=== PATIENT | female | born 1965 | race Caucasian/White ===

== ENCOUNTER 2017-02-16 15:50 | Inpatient (IN) | payer SELFPAY ==
[~2017-02-16] VITALS: Ht 152.4 cm; Wt 107.1 kg
[~2017-02-16 15:50] MED LIST: ALPR2TAB2 PO; CYCL-331 PO; DULO60CA6 PO; ESTR1PAT42 TD; GABA-586 PO; HYDR-971 PO; LISI-334 PO; MELO15TA6 PO; METF10002 PO; SENN1TAB71 PO
[2017-02-16] MEDS ORDERED: ENOXAPARIN 30 MG/0.3 ML DISP.SYRIN. SQ SCH (16:30)
[2017-02-16 16:54] VITALS: BP 119/83
[2017-02-16] MEDS ORDERED: ONDANSETRON ODT 4 MG TAB.RAPDIS PO PRN (17:10)
[2017-02-16 17:24] LABS: BASO # 0.1 x10^3/uL (0.0-0.2); BASO % 1 % (0-3); EOS # 0.5 x10^3/uL (0.0-0.7); EOS % 4 % (0-3); HEMATOCRIT 44.4 % (36.0-47.0); HEMOGLOBIN 15.4 g/dL (12.0-15.5); LYMPH # 3.8 x10^3/uL (1.0-4.8); LYMPH % 33 % (24-48); MEAN CORPUSCULAR HEMOGLOBIN 30 pg (25-35); MEAN CORPUSCULAR HGB CONC 35 g/dL (31-37); MEAN CORPUSCULAR VOLUME 86 fL (79-100); MONO # 1.6 x10^3/uL (0.0-1.1); MONO % 14 % (0-9); NEUT # 5.7 x10^3uL (1.8-7.7); NEUT % 49 % (31-73); PLATELET COUNT 265 x10^3/uL (140-400); RED BLOOD COUNT 5.16 x10^6/uL (3.50-5.40); RED CELL DISTRIBUTION WIDTH 14.4 % (11.5-14.5); WHITE BLOOD COUNT 11.7 x10^3/uL (4.0-11.0)
--- NOTE | 2017-02-16 17:30 | EKG ---
[address] [address] Test Date: 2017-02-16 Test Time: 17:23:59 Pat Name: JIN HAND Department: Room: 119 A Gender: F Manager [employer]: ARELY : 1965 Requested By: JAZMIN YEBOAH Order Number: [id number] Reading MD: Measurements Intervals [place] Rate: 110 P: 36 GA: 136 QRS: 17 QRSD: 94 T: 21 QT: 316 QTc: 433 Interpretive Statements SINUS TACHYCARDIA R-S TRANSITION ZONE IN V LEADS DISPLACED TO THE LEFT QRS(T) CONTOUR ABNORMALITY CONSIDER ANTEROSEPTAL MYOCARDIAL DAMAGE POSSIBLY ABNORMAL ECG RI6.01 No previous ECG available for comparison
[2017-02-16 17:44] LABS: ALBUMIN 3.7 g/dL (3.4-5.0); ALBUMIN/GLOBULIN RATIO 0.8 (1.0-1.7); CALCIUM 10.2 mg/dL (8.5-10.1); CREATININE 0.9 mg/dL (0.6-1.0); GFR 65.5; POTASSIUM 3.6 mmol/L (3.5-5.1); TOTAL BILIRUBIN 0.6 mg/dL (0.2-1.0); TOTAL PROTEIN 8.2 g/dL (6.4-8.2)
[2017-02-16] MEDS ORDERED: GLIP5TAB10 PO (17:53)
[2017-02-16] MEDS ORDERED: AMIT25TA PO (17:53)
[2017-02-16] MEDS ORDERED: LISI1TAB7 PO (17:53)
[2017-02-16] MEDS ORDERED: ALPR0.5T6 PO (17:53)
[2017-02-16] MEDS ORDERED: PARO30TA3 PO (17:53)
[2017-02-16] MEDS ORDERED: OMEP40CA5 PO (17:54)
[2017-02-16] MEDS: IV NORMAL SALINE 1,000ML 1,000 ML IV SCH (18:29)
[2017-02-16] MEDS: HYDROcodone/APAP 5/325MG 1 TAB TABLET PO PRN (18:29)
[2017-02-16 18:42] LABS: SEDIMENTATION RATE 34 (0-25)
[2017-02-16] MEDS ORDERED: DEXTROSE 50% 25 GM / 50ML DISP.SYRIN. IV PRN (18:45)
[2017-02-16] MEDS ORDERED: ENOXAPARIN 40 MG/0.4 ML DISP.SYRIN. SQ SCH (19:15)
[2017-02-16 19:36] LABS: BILIRUBIN,URINE NEG (NEG); CLARITY,URINE HAZY; COLOR,URINE YELLOW; GLUCOSE,URINE 100 mg/dL (NEG); NITRITE,URINE NEG (NEG); UROBILINOGEN,URINE 0.2 mg/dL (0.2 mg/dL)
[2017-02-16 19:37] VITALS: BP 118/84
[2017-02-16 19:37] LABS: BACTERIA,URINE MOD /HPF (0-FEW); SQUAMOUS EPITHELIAL CELL,UR MANY /LPF
[2017-02-16] MEDS ORDERED: PNEUMOC CONJ VACC 23-VALENT 0.5 ML VIAL. VAX IM ONE (21:00)
[2017-02-16] MEDS ORDERED: FLU VACC QS2017-18 (36MOS+)/PF 0.5 ML SYRINGE. VAX IM ONE (21:00)
[2017-02-16] MEDS: GABAPENTIN 300 MG CAPSULE. PO SCH (21:15)
[2017-02-16] MEDS: CYCLOBENZAPRINE 10 MG TABLET. PO SCH (21:15)
[2017-02-16] MEDS: AMITRIPTYLINE HCL 50 MG TABLET PO SCH (21:15)
[2017-02-16] MEDS: ALPRAZolam 0.5 MG TABLET PO SCH (21:15)
[2017-02-16] MEDS: INSULIN ASPART 300 UNITS/3 ML INSULN.PEN SQ SCH (21:16)
[2017-02-16 23:48] VITALS: BP 111/66
[2017-02-17] MEDS: IV NORMAL SALINE 1,000ML 1,000 ML IV SCH ×3 (01:02→20:07)
[2017-02-17 05:03] VITALS: BP 104/74
[2017-02-17] MEDS: ENOXAPARIN 40 MG/0.4 ML DISP.SYRIN. SQ SCH ×2 (05:16→20:08)
[2017-02-17 06:30] LABS: BASO # 0.1 x10^3/uL (0.0-0.2); BASO % 1 % (0-3); EOS # 0.5 x10^3/uL (0.0-0.7); EOS % 7 % (0-3); HEMATOCRIT 39.8 % (36.0-47.0); HEMOGLOBIN 13.8 g/dL (12.0-15.5); LYMPH # 3.2 x10^3/uL (1.0-4.8); LYMPH % 44 % (24-48); MEAN CORPUSCULAR HEMOGLOBIN 30 pg (25-35); MEAN CORPUSCULAR HGB CONC 35 g/dL (31-37); MEAN CORPUSCULAR VOLUME 86 fL (79-100); MONO % 15 % (0-9); NEUT # 2.3 x10^3uL (1.8-7.7); NEUT % 33 % (31-73); PLATELET COUNT 194 x10^3/uL (140-400); RED BLOOD COUNT 4.62 x10^6/uL (3.50-5.40); RED CELL DISTRIBUTION WIDTH 14.1 % (11.5-14.5); WHITE BLOOD COUNT 7.1 x10^3/uL (4.0-11.0)
[2017-02-17 07:16] LABS: HEMOGLOBIN A1C 9.6 % (4.8-5.6)
--- NOTE | 2017-02-17 07:46 | RAD ---
Chest, 2 views, 02/16/2017: History: Shortness of breath The heart size and pulmonary vascularity are normal. No pulmonary infiltrates are seen. There is no evidence of pleural fluid. Moderate spurring is present in the spine. IMPRESSION: No acute cardiopulmonary abnormality is detected.
[2017-02-17] MEDS ORDERED: metFORMIN 500 MG TABLET PO SCH (08:00)
[2017-02-17] MEDS: ALPRAZolam 0.5 MG TABLET PO SCH ×2 (08:22→20:08)
[2017-02-17] MEDS: CYCLOBENZAPRINE 10 MG TABLET. PO SCH ×2 (08:22→20:08)
[2017-02-17] MEDS: PANTOPRAZOLE 40 MG TABLET. PO SCH (08:22)
[2017-02-17] MEDS: PARoxetine 10 MG TABLET PO SCH (08:23)
[2017-02-17] MEDS: GABAPENTIN 300 MG CAPSULE. PO SCH ×3 (08:23→20:08)
[2017-02-17] MEDS: glipiZIDE 5 MG TABLET PO SCH (08:24)
[2017-02-17] MEDS: PARoxetine 20 MG TABLET PO SCH (08:34)
[2017-02-17] MEDS: LISINOPRIL 20 MG TABLET PO SCH (08:39)
[2017-02-17] MEDS: hydroCHLOROthiazide 25 MG TABLET PO SCH (08:39)
[2017-02-17] MEDS: INSULIN ASPART 300 UNITS/3 ML INSULN.PEN SQ SCH ×4 (08:42→20:28)
[2017-02-17] MEDS ORDERED: IOHEXOL 300 MG/ML 75 ML VIAL. IV ONE (10:00)
[2017-02-17] MEDS: INSULIN DETEMIR 300 UNITS/3 ML INSULN.PEN. SQ SCH ×2 (10:33→20:27)
[2017-02-17] MEDS ORDERED: CONTRAST GIVEN MC PRN (10:45)
[2017-02-17 11:09] VITALS: BP 112/79
--- NOTE | 2017-02-17 12:07 | RAD ---
CT angiography chest 02/17/2017 Indication: Elevated d-dimer. Shortness of breath. Comparison: None available Technique: Multiple axial CT images of the chest were obtained after the administration of 75 mL Omnipaque 300. Coronal and sagittal reformats are provided. Density projection images of the pulmonary vasculature are provided. Findings: Thyroid gland is normal in appearance. There are no pathologically enlarged lymph nodes in the axilla, mediastinum or hilar regions. Heart size is within normal limits. Thoracic area is normal in course and caliber. There is inadequate opacification of the pulmonary arterial system to assess for pulmonary embolism. There is a 13 x 8 nodular opacity abutting the oblique fissure in the posterior right upper lobe. There is an additional nodular opacity in the left upper lobe measuring 10 x 7 mm. There are no pleural effusions. No pulmonary vascular congestion or pneumothorax. No suspicious osseous lesions are identified. There is diffuse hypoattenuation the hepatic parenchyma suggestive of hepatic steatosis. Otherwise, visualized portions of the upper abdomen are within normal limits. Impression: 1. 13 x 8 nodular opacity abutting the oblique fissure and posterior right upper lobe. Additional nodular opacity in the left upper lobe measuring 10 x 7 mm. Consideration may be given for an infectious/inflammatory process, however recommend correlation with any underlying history of malignancy. Further evaluation with either tissue sampling or PET CT may be of benefit as lung malignancy is a consideration. 2. Inadequate opacification the pulmonary arterial system to assess for pulmonary embolism. If there is persistent clinical concern, further evaluation with a ventilation perfusion nuclear medicine scan may be of benefit. 3. Diffuse hypoattenuation the hepatic parenchyma suggestive of hepatic steatosis. Critical results were discussed with JAMES Rodriguez at 12:00 PM on 02/17/2017. PQRS Compliance Statement: One or more of the following individualized dose reduction techniques were utilized for this examination: 1. Automated exposure control 2. Adjustment of the mA and/or kV according to patient size 3. Use of iterative reconstruction technique
[2017-02-17] MEDS: HYDROcodone/APAP 5/325MG 1 TAB TABLET PO PRN ×2 (12:14→17:15)
[2017-02-17] MEDS: NITROFURANTOIN MONOHYD/M-CRYST 100 MG CAPSULE. PO SCH ×2 (12:22→20:08)
[2017-02-17 14:34] VITALS: BP 117/73
--- NOTE | 2017-02-17 15:48 | RAD ---
Ventilation/perfusion lung scan, 02/17/2017: History: Shortness of breath, elevated d-dimer The ventilation study was performed utilizing 9.2 mCi of xenon-133. Activity in the lungs is mildly heterogeneous. There is good washout of the xenon from the lungs. Perfusion imaging was performed utilizing 5.5 mCi of technetium 99m MAA. A similar pattern of activity is present in the lungs. No significant unmatched or segmental perfusion defects are seen. IMPRESSION: There are no VQ findings to suggest pulmonary emboli.
[2017-02-17 19:10] VITALS: BP 105/62
[2017-02-17] MEDS: AMITRIPTYLINE HCL 50 MG TABLET PO SCH (20:08)
[2017-02-17] MEDS ORDERED: PNEUMOC CONJ VACC 23-VALENT 0.5 ML VIAL. VAX IM ONE (22:00)
[2017-02-17] MEDS ORDERED: FLU VACC QS2017-18 (36MOS+)/PF 0.5 ML SYRINGE. VAX IM ONE (22:00)
[2017-02-17 23:00] VITALS: BP 102/67
[2017-02-18] MEDS: IV NORMAL SALINE 1,000ML 1,000 ML IV SCH ×2 (00:45→05:38)
--- NOTE | 2017-02-18 03:38 | PN ---
DATE: 02/17/2017 SUBJECTIVE: A 51-year-old female in with elevated blood sugars, possible infectious or inflammatory process in the lungs as well as hepatic steatosis. V/Q scan was performed apparently because the CTA did not get enough perfusion and it was negative for signs of PE. Otherwise, she is feeling better, sugars are coming down. PHYSICAL EXAMINATION: VITAL SIGNS: Blood pressure 120/70, pulse 90, respiratory rate 20, afebrile. LUNGS: Diminished, but clear. CARDIOVASCULAR: Regular sinus rhythm. ABDOMEN: Protuberant, soft, nontender. EXTREMITIES: No clubbing, cyanosis, or edema. The patient otherwise seems to be resting fairly comfortably and getting her sugars down and we will continue to monitor. IMPRESSION: Pneumonia of unspecified etiology. Type 2 diabetes, poorly controlled with an A1c of 9, almost 10. Elevated liver enzymes, hepatic steatosis. Continue to increase her Levemir, give her diabetic education as well as continue on IV antibiotic therapy. Monitor electrolytes. JAZMIN YEBOAH MD DR: JONATHON/delvis JOB#: [id number] / [id number]
[2017-02-18] MEDS: ENOXAPARIN 40 MG/0.4 ML DISP.SYRIN. SQ SCH (05:38)
[2017-02-18 05:40] VITALS: BP 104/79
[2017-02-18 06:00] LABS: BASO # 0.1 x10^3/uL (0.0-0.2); BASO % 1 % (0-3); EOS # 0.4 x10^3/uL (0.0-0.7); EOS % 7 % (0-3); HEMATOCRIT 39.4 % (36.0-47.0); HEMOGLOBIN 13.1 g/dL (12.0-15.5); LYMPH # 2.8 x10^3/uL (1.0-4.8); LYMPH % 45 % (24-48); MEAN CORPUSCULAR HEMOGLOBIN 30 pg (25-35); MEAN CORPUSCULAR HGB CONC 33 g/dL (31-37); MEAN CORPUSCULAR VOLUME 90 fL (79-100); MONO # 0.8 x10^3/uL (0.0-1.1); MONO % 13 % (0-9); NEUT # 2.1 x10^3uL (1.8-7.7); NEUT % 34 % (31-73); PLATELET COUNT 196 x10^3/uL (140-400); RED BLOOD COUNT 4.39 x10^6/uL (3.50-5.40); WHITE BLOOD COUNT 6.3 x10^3/uL (4.0-11.0)
[2017-02-18 06:12] LABS: CALCIUM 8.7 mg/dL (8.5-10.1); CREATININE 0.6 mg/dL (0.6-1.0); GFR 104.6; POTASSIUM 3.5 mmol/L (3.5-5.1)
[2017-02-18] MEDS: PANTOPRAZOLE 40 MG TABLET. PO SCH (08:00)
[2017-02-18] MEDS: INSULIN ASPART 300 UNITS/3 ML INSULN.PEN SQ SCH ×2 (08:05→12:00)
[2017-02-18] MEDS ORDERED: FLU VACC QS2017-18 (36MOS+)/PF 0.5 ML SYRINGE. VAX IM ONE (09:00)
[2017-02-18] MEDS ORDERED: LACTOBACILLUS ACIDOPH & BULGAR 1 TABLET. PO SCH (09:00)
[2017-02-18] MEDS: GABAPENTIN 300 MG CAPSULE. PO SCH (09:34)
[2017-02-18] MEDS: ALPRAZolam 0.5 MG TABLET PO SCH (09:35)
[2017-02-18] MEDS: NITROFURANTOIN MONOHYD/M-CRYST 100 MG CAPSULE. PO SCH (09:36)
[2017-02-18] MEDS: CYCLOBENZAPRINE 10 MG TABLET. PO SCH (09:36)
[2017-02-18] MEDS: PARoxetine 20 MG TABLET PO SCH (09:36)
[2017-02-18] MEDS: PARoxetine 10 MG TABLET PO SCH (09:38)
[2017-02-18] MEDS: LISINOPRIL 20 MG TABLET PO SCH (09:39)
[2017-02-18] MEDS: hydroCHLOROthiazide 25 MG TABLET PO SCH (09:42)
[2017-02-18] MEDS: glipiZIDE 5 MG TABLET PO SCH (09:43)
[2017-02-18] MEDS: INSULIN DETEMIR 300 UNITS/3 ML INSULN.PEN. SQ SCH (09:44)
[2017-02-18] MEDS ORDERED: INSU100I17 SQ (11:25)
[2017-02-18] MEDS ORDERED: INSU100I27 SQ (11:25)
[2017-02-18 11:27] VITALS: BP 127/91
[2017-02-19] MEDS ORDERED: metFORMIN 500 MG TABLET PO SCH (08:00)
== END 2017-02-18 12:40 | disposition home or self-care (01) | DRG 637 ==
LOC: 1 SOUTH 16:25
PROVIDERS: ADMIT Family Medicine; ATTEND Family Medicine
DX: E11.65 Type 2 diabetes mellitus with hyperglycemia (principal); J18.9 Pneumonia, unspecified organism; K76.0 Fatty (change of) liver, not elsewhere classified
CPT/HCPCS: 36415; 71020; 71275; 78582; 80048; 80053; 81001; 82947; 83036; 83605; 85025; 85379; 85651; 87040; 87086; 90686; 90732; 93005; 96374; A9540; A9558; J0696; J1650; J1815; Q9967; J7030

== ENCOUNTER → 2018-03-29 | Outpatient (CLI) | payer MEDICARE, OTHER ==
[~2018-03-29] MED LIST changes: +ALPR0.5T6 PO; +AMIT25TA PO; +GLIP5TAB10 PO; +HYDR-3165 PO; -HYDR-971 PO; +INSU100I17 SQ; +INSU100I27 SQ; +IOHEXOL 300 MG/ML 75 ML VIAL. IV ONE; +LISI1TAB7 PO; -METF10002 PO; +METF10007 PO; +OMEP40CA5 PO; +PARO30TA3 PO
[2018-03-29 09:03] LABS: POTASSIUM ISTAT 3.9 mmol/L (3.5-5.0)
[2018-03-29 09:04] LABS: HEMOGLOBIN ISTAT 14.3 gm/dL
--- NOTE | 2018-03-29 15:59 | RAD ---
CT study of the chest with contrast Clinical indications: Cough and shortness of air. History of lung nodules. Follow-up study. TECHNIQUE: After IV infusion of 75 cc of Omnipaque 300, helical CT scanning of the chest was performed. PQRS compliance Statement One or more of the following individualized dose reduction techniques were utilized for this study: 1. Automated exposure control 2. Adjustment of the mA and/or kV according to patient size 3. Use of iterative reconstruction technique COMPARISON: February 17, 2017. FINDINGS: No focal aneurysmal dilatation or dissection of the thoracic aorta is seen. The heart size is normal and no pericardial effusion is seen. No enlarged thoracic lymphadenopathy is evident. No lung mass or lung consolidation is evident. There is a noncalcified lung nodule within the posterior aspect the right upper lobe which is round and smooth and measures 8 mm in size. This nodule measured 14 mm in size on the previous study and had irregular borders with an adjacent groundglass lung infiltrate. Therefore, this may represent an inflammatory lesion which has resulted in a residual nodular scar or granuloma. There is a nodule with a round smooth border within the lingula and is noncalcified and measures 8 mm in size. On the previous study, it measured 11 mm in size and exhibited irregular borders with a mild groundglass adjacent lung infiltrate. Therefore, this may represent an inflammatory nodule which has resulted in a nodular scar or granuloma as well. No new lung nodules are seen. No pleural effusion or pneumothorax is seen. The proximal bronchial tree is patent. The adrenal glands are not seen on this study. Posterior costophrenic angles are not completely included on the study. Fatty infiltration of the liver is seen. IMPRESSION: No acute abnormality. Decrease in size of lung nodules seen previously. Therefore, the previous lung nodules may have represented inflammatory lung nodules t which have resulted in a nodular scar or granuloma. Recommend continued noncontrast chest CT in 12 months to ensure stability. Electronically signed by: Jose Daniel London MD (03/29/2018 3:55 PM) [place] [id number]
== END | disposition home or self-care (01) ==
LOC: CT 08:00
PROVIDERS: ATTEND Physician Assistant
DX: R91.8 Other nonspecific abnormal finding of lung field (principal); K76.0 Fatty (change of) liver, not elsewhere classified; I10 Essential (primary) hypertension; E11.9 Type 2 diabetes mellitus without complications
CPT/HCPCS: 36415; 71260; 80047; Q9967

== ENCOUNTER → 2019-01-21 | Outpatient (CLI) | payer MEDICARE ==
[~2019-01-21] MED LIST changes: -IOHEXOL 300 MG/ML 75 ML VIAL. IV ONE; +LISI1TAB20 PO; -LISI1TAB7 PO
--- NOTE | 2019-01-21 16:20 | RAD ---
DATE: 01/21/2019 EXAM: MAMMO MADDY SCREENING BILATERAL HISTORY: Routine screening COMPARISON: 02/13/2014 screening mammogram This study was interpreted with the benefit of Computerized Aided Detection (CAD). Breast Density: SCATTERED The breast parenchyma shows scattered fibroglandular densities. Breast parenchyma level B. FINDINGS: No suspicious mass, calcification, or distortion. IMPRESSION: Stable. BI-RADS CATEGORY: 1 NEGATIVE RECOMMENDED FOLLOW-UP: 12M 12 MONTH FOLLOW-UP PQRS compliance statement: Patient information was entered into a reminder system with a target due date for the next mammogram. Mammography is a sensitive method for finding small breast cancers, but it does not detect them all and is not a substitute for careful clinical examination. A negative mammogram does not negate a clinically suspicious finding and should not result in delay in biopsying a clinically suspicious abnormality. "Our facility is accredited by the [employer] Mammography Program."
== END | disposition home or self-care (01) ==
LOC: MAMMO 09:04
PROVIDERS: ATTEND Physician Assistant
DX: Z12.31 Encounter for screening mammogram for malignant neoplasm of breast (principal)
CPT/HCPCS: 77063; 77067